=== PATIENT | male | born 1955 | race African-American/Black ===

== ENCOUNTER 2022-10-02 08:22 | Day surgery (SDC) | payer OTHER ==
[2022-09-30 14:30] VITALS: BMI 32.6
[2022-10-02 08:57] VITALS: RESP 18
[2022-10-02 10:15] VITALS: TEMP 97.4
[2022-10-02 10:29] VITALS: BP 120/54; PULSE 68
== END 2022-10-02 10:57 | disposition home or self-care (01) ==
LOC: FASU-ENDO 08:22
PROVIDERS: ATTEND Internal Medicine Gastroenterology
PROC: 0DBN8ZX Excision of Sigmoid Colon, Via Natural or Artificial Opening Endoscopic, Diagnostic (ICD-10-PCS; principal; 2022-10-02 09:46)
DX: Z12.11 Encounter for screening for malignant neoplasm of colon (principal); D12.5 Benign neoplasm of sigmoid colon; K64.1 Second degree hemorrhoids; K64.8 Other hemorrhoids
CPT/HCPCS: 82962; 88305-TC